=== PATIENT | male | born 1970 | race Caucasian/White ===

== ENCOUNTER 2018-08-23 13:06 | Emergency (ER) | payer SELFPAY ==
--- NOTE | 2018-08-23 13:41 | ER Document Report ---
ED Medical Screen (RME) - General Chief Complaint: Ankle Swelling Stated Complaint: BODYACHE Time Seen by Provider: 08/23/18 13:14 Notes: 48-year-old male to the emergency department chief complaint of lower extremity edema and right-sided chest pain with shortness of breath. Patient states that whenever he does any activity he is extremely winded. He is never had swelling of his legs but noticed his both calves are tender and there is a large amount of swelling with some redness. No history of heart attack, stroke. No history of heart problems or diabetes. No history of blood clots. I have greeted and performed a rapid initial assessment of this patient. A comprehensive ED assessment and evaluation of the patient, analysis of test results and completion of the medical decision making process will be conducted by additional ED providers. TRAVEL OUTSIDE OF THE [place] IN LAST 30 DAYS: No - Related Data Allergies/Adverse Reactions: No Known Allergies Allergy (Verified 08/23/18 13:07) Past Medical History - Social History Chew tobacco use (# tins/day): No Frequency of alcohol use: None Drug Abuse: None Renal/ Medical History: Denies: Hx Peritoneal Dialysis Musculoskeltal Medical History: Reports Hx Arthritis, Reports Hx Musculoskeletal Deformity, Reports Hx Musculoskeletal Trauma Psychiatric Medical History: Reports: Hx Anxiety, Hx Bipolar Disorder, Hx De pression Traumatic Medical History: Reports: Hx Fractures, Hx Spine Fracture Past Surgical History: Reports: Hx Orthopedic Surgery - cyst removal left wrist, Hx Tonsillectomy - Immunizations Hx Diphtheria, Pertussis, Tetanus Vaccination: Yes Review of Systems - Review of Systems Notes: Review of systems positive for the following: Leg pain and calf pain with swelling, right-sided chest pain, shortness of breath, body aches Physical Exam - Vital signs Vitals: Temp Pulse Resp BP Pulse Ox 97.3 F 78 16 145/87 H 98 08/23/18 13:12 08/23/18 13:12 08/23/18 13:12 08/23/18 13:12 08/23/18 13:12 - Respiratory Respiratory status: No respiratory distress Chest status: Nontender Breath sounds: Other - Crackles on the right base Chest palpation: Normal - Cardiovascular Rhythm: Regular Heart sounds: Normal auscultation Murmur: No - Extremities General upper extremity: Normal inspection, Nontender General lower extremity: Tender, Edema, Other - Slight red tinge with 2+ pitting edema bilaterally Course - Vital Signs Vital signs: Temp Pulse Resp BP Pulse Ox 97.3 F 78 16 145/87 H 98 08/23/18 13:12 08/23/18 13:12 08/23/18 13:12 08/23/18 13:12 08/23/18 13:12
--- NOTE | 2018-08-23 14:14 | RADIOLOGY REPORT (SQ) ---
EXAM DESCRIPTION: CHEST 2 VIEWS COMPLETED DATE/TIME: 08/23/2018 2:06 pm REASON FOR STUDY: chest pain COMPARISON: 09/30/2015. EXAM PARAMETERS: NUMBER OF VIEWS: two views TECHNIQUE: Digital Frontal and Lateral radiographic views of the chest acquired. RADIATION DOSE: NA LIMITATIONS: none FINDINGS: LUNGS AND PLEURA: Right pleural effusion/thickening. Mild atelectasis/ scarring in the ri ght lung. Left lung clear. MEDIASTINUM AND HILAR STRUCTURES: Right-sided aortic arch. HEART AND VASCULAR STRUCTURES: Heart normal size. No evidence for failure. BONES: No acute findings. HARDWARE: None in the chest. OTHER: No other significant finding. IMPRESSION: RIGHT PLEURAL EFFUSION VERSUS THICKENING. MILD ATELECTASIS AND SCARRING IN THE RIGHT MEG NG. TECHNICAL DOCUMENTATION: JOB ID: [id number] [employer]- All Rights Reserved Reading location - IP/workstation name: [email or web address]
[2018-08-23 14:20] LABS: ABSOLUTE BASOPHILS # (AUTO) 0.1 10^3/uL (0.0-0.2); ABSOLUTE EOSINOPHILS # (AUTO) 1.1 10^3/uL (0.0-0.6); ABSOLUTE MONOCYTES (AUTO) 0.8 10^3/uL (0.1-1.4); ABSOLUTE NEUT (AUTO) 5.8 10^3/uL (1.7-8.2); BASOPHILS % (AUTO) 1.1 % (0-2); HEMATOCRIT 38.2 % (37.9-51.0); HEMOGLOBIN 12.9 g/dL (13.5-17.0); LYMPHOCYTES % (AUTO) 20.8 % (13-45); MEAN CORPUSCULAR HEMOGLOBIN 28.8 pg (27.0-33.4); MEAN CORPUSCULAR HGB CONC 33.8 g/dL (32.0-36.0); MEAN CORPUSCULAR VOLUME 85 fl (80-97); MONOCYTES % (AUTO) 8.1 % (3-13); PLATELET COUNT 385 10^3/uL (150-450); RED BLOOD COUNT 4.47 10^6/uL (4.35-5.55); RED CELL DISTRIBUTION WIDTH 13.3 % (11.5-14.0); TOTAL CELLS COUNTED % (AUTO) 100 %; WHITE BLOOD COUNT 9.9 10^3/uL (4.0-10.5)
[2018-08-23 14:24] LABS: ALANINE AMINOTRANSFERASE 136 U/L (21-72); ALBUMIN 4.7 g/dL (3.5-5.0); ALKALINE PHOSPHATASE 177 U/L (38-126); ANION GAP 9 (5-19); ASPARTATE AMINO TRANSFERASE 66 U/L (17-59); BILIRUBIN,DIRECT 0.2 mg/dL (0.0-0.4); BILIRUBIN,TOTAL 0.4 mg/dL (0.2-1.3); BLOOD UREA NITROGEN 15 mg/dL (7-20); CALCIUM 9.7 mg/dL (8.4-10.2); CARBON DIOXIDE 30 mmol/L (22-30); CHLORIDE 97 mmol/L (98-107); GLUCOSE 121 mg/dL (75-110); POTASSIUM 4.6 mmol/L (3.6-5.0); SODIUM 136.1 mmol/L (137-145); TOTAL PROTEIN 7.6 g/dL (6.3-8.2)
[2018-08-23 14:37] LABS: NT PRO BNP < 11 pg/mL (5-900); TROPONIN I < 0.012 ng/mL
[2018-08-23 15:12] LABS: PROTHROMBIN TIME 12.6 SEC (11.4-15.4)
--- NOTE | 2018-08-23 16:51 | ER Document Report ---
ED General - General Chief Complaint: Ankle Swelling Stated Complaint: BODYACHE Time Seen by Provider: 08/23/18 13:14 Notes: Patient is a 48-year-old male with no reported past medical history that presents to the emergency department for chief complaint of right pleuritic rib pain, and bilateral lower extremity swelling. Patient reports has been having the symptoms for approximately 3 weeks now, has gotten to the point where his family encouraged him to come to the emergency department. 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 He is got some lightheadedness but no dizziness associated. He states that when he coughs, or takes a deep breath he has pain in his right lower ribs, which is new and seems to be correlating with the leg swelling. He denies prior history of heart disease, lung disease, DVT or PE, denies family history of clots. Denies any recent travel. He also denies any recent fevers, chills, night sweats, nausea, vomiting, abdominal pain, dysuria hematuria or diarrhea. Past Medical History: Denies chronic medical conditions Past Surgical History: Denies surgical history Social History: Admits to smoking cigarettes daily, denies alcohol or illicit drug use. Family History: Reviewed and noncontributory for presenting illness Allergies: Reviewed, see documented allergy list. REVIEW OF SYSTEMS: Other than noted above, the 12 point review of systems was reviewed with the patient and were negative, all pertinent findings are included in the HPI. PHYSICAL EXAMINATION: Vital signs reviewed, nursing noted reviewed. GENERAL: Well-appearing, well-nourished and in no acute distress. HEAD: Atraumatic, normocephalic. EYES: Eyes appear normal, extraocular movements intact, sclera anicteric, conjunctiva are normal. ENT: nares patent, oropharynx clear without exudates. Moist mucous membranes. NECK: Normal range of motion, supple without lymphadenopathy LUNGS: Breath sounds clear to auscultation bilaterally and equal. No wheezes rales or rhonchi. HEART: Regular rate and rhythm without murmurs ABDOMEN: Soft, nontender, normoactive bowel sounds. No rebound, guarding, or rigidity. No masses appreciated. EXTREMITIES: Nontender, good range of motion, no pitting or edema. NEUROLOGICAL: No focal neurological deficits. Moves all extremities spontaneously Motor and sensory grossly intact on exam. PSYCH: Normal mood, normal affect. SKIN: Warm, Dry, normal turgor, no rashes or lesions noted on exposed skin TRAVEL OUTSIDE OF THE [place] IN LAST 30 DAYS: No - Related Data Allergies/Adverse Reactions: No Known Allergies Allergy (Verified 08/23/18 13:07) Past Medical History - Social History Smoking Status: Current Every Day Smoker Chew tobacco use (# tins/day): No Frequency of alcohol use: None Drug Abuse: None Family History: CAD, CVA, Hyperlipidemia, Hypertension Patient has suicidal ideation: No Patient has homicidal ideation: No Renal/ Medical History: Denies: Hx Peritoneal Dialysis Musculoskeletal Medical History: Reports Hx Arthritis, Reports Hx Musculoskeletal Deformity, Reports Hx Musculoskeletal Trauma Psychiatric Medical History: Reports: Hx Anxiety, Hx Bipolar Disorder, Hx Depression Traumatic Medical History: Reports: Hx Fractures, Hx Spine Fracture Past Surgical History: Reports: Hx Orthopedic Surgery - cyst removal left wrist, Hx Tonsillectomy - Immunizations Hx Diphtheria, Pertussis, Tetanus Vaccination: Yes Physical Exam - Vital signs Vitals: Temp Pulse Resp BP Pulse Ox 97.3 F 78 16 145/87 H 98 08/23/18 13:12 08/23/18 13:12 08/23/18 13:12 08/23/18 13:12 08/23/18 13:12 Course - Re-evaluation Re-evalutation: Patient seen and examined vital signs reviewed. Laboratory data and imaging were ordered as appropriate for the patient's presenting symptoms and complaint, with consideration of any critical or life threatening conditions that may be associated with their obtained history and exam as noted above. Patient was treated with IV Toradol for pain Results were reviewed when available and demonstrated elevated d-dimer, therefore CT angiogram of the chest was ordered, and this was negative for pulmonary embolism, was suboptimal bolusing, the patient was not tachycardic, and had normal pulse ox, he was noted on his chest x-ray to have a small right- sided pleural effusion which may be causing the patient's pleuritic pain, I discussed these findings with the patient, and discussed with him treatment of his peripheral edema conservatively initially with compression stockings, and following up with the primary care physician, he is given referral to several to schedule an appointment. His BNP was not elevated, did not have significant cardiomegaly on chest x-ray. The patient was re-evaluated and was stable, and felt improved Evaluation was most consistent with pleuritic pain, peripheral edema Results were discussed with the patient at this point, after careful consideration I feel that that patient can be discharged from the emergency department, the patient was educated treatments and reasons to return to the emergency department based on their presumed diagnosis as noted above, they were advised to followup with a primary care physician in 2-3 days. Patient was agreeable to plan of care. *Note is created using voice recognition software and may contain spelling, syntax or grammatical errors. Laboratory 08/23/18 08/23/18 08/23/18 13:48 13:48 13:48 WBC 9.9 RBC 4.47 Hgb 12.9 L Hct 38.2 MCV 85 MCH 28.8 MCHC 33.8 RDW 13.3 Plt Count 385 Seg Neutrophils % 59.0 Lymphocytes % 20.8 Monocytes % 8.1 Eosinophils % 11.0 H Basophils % 1.1 Absolute Neutrophils 5.8 Absolute Lymphocytes 2.0 Absolute Monocytes 0.8 Absolute Eosinophils 1.1 H Absolute Basophils 0.1 PT INR D-Dimer Sodium 136.1 L Potassium 4.6 Chloride 97 L Carbon Dioxide 30 Anion Gap 9 BUN 15 Creatinine 0.97 Est GFR ( Amer) > 60 Est GFR (Non-Af Amer) > 60 Glucose 121 H Calcium 9.7 Total Bilirubin 0.4 Direct Bilirubin 0.2 Neonat Total Bilirubin Not Reportable Neonat Direct Bilirubin Not Reportable Neonat Indirect Bili Not Reportable AST 66 H ALT 136 H Alkaline Phosphatase 177 H Troponin I < 0.012 NT-Pro-B Natriuret Pep < 11 Total Protein 7.6 Albumin 4.7 08/23/18 08/23/18 13:48 13:48 WBC RBC Hgb Hct MCV MCH MCHC RDW Plt Count Seg Neutrophils % Lymphocytes % Monocytes % Eosinophils % Basophils % Absolute Neutrophils Absolute Lymphocytes Absolute Monocytes Absolute Eosinophils Absolute Basophils PT 12.6 INR 0.90 D-Dimer 1.69 H Sodium Potassium Chloride Carbon Dioxide Anion Gap BUN Creatinine Est GFR ( Amer) Est GFR (Non-Af Amer) Glucose Calcium Total Bilirubin Direct Bilirubin Neonat Total Bilirubin Neonat Direct Bilirubin Neonat Indirect Bili AST ALT Alkaline Phosphatase Troponin I NT-Pro-B Natriuret Pep Total Protein Albumin Chest X-Ray 08/23/18 13:39 IMPRESSION: RIGHT PLEURAL EFFUSION VERSUS THICKENING. MILD ATELECTASIS AND SCARRING IN THE RIGHT LUNG. Chest/Abdomen CTA 08/23/18 14:44 IMPRESSION: 1. Limited study. There is no significant evidence of pulmonary emboli. 2. 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 - Vital Signs Vital signs: Temp Pulse Resp BP Pulse Ox 98.2 F 76 16 123/85 100 08/23/18 17:56 08/23/18 17:56 08/23/18 17:56 08/23/18 17:56 08/23/18 17:56 - Laboratory Result Diagrams: 08/23/18 13:48 08/23/18 13:48 Laboratory results interpreted by me: 08/23/18 08/23/18 08/23/18 13:48 13:48 13:48 Hgb 12.9 L Eosinophils % 11.0 H Absolute Eosinophils 1.1 H D-Dimer 1.69 H Sodium 136.1 L Chloride 97 L Glucose 121 H AST 66 H ALT 136 H Alkaline Phosphatase 177 H - EKG Interpretation by Me Additional EKG results interpreted by me: EKG demonstrates sinus rhythm with a ventricular rate of 74 bpm, left axis deviation, normal intervals, no evidence of acute ischemia on this EKG, this is compared with the prior EKG from 09/30/2015 without significant change. Discharge - Discharge Clinical Impression: Pleurisy, Pleural effusion, Peripheral edema Condition: Stable Disposition: HOME, SELF-CARE Instructions: Edema, Peripheral ([facility]) Additional Instructions: Please follow-up with the primary care physician, call for an appointment as soon as possible, see can be established for care, I think you need further workup including an ultrasound of your heart, we call this an echocardiogram. You should use compression stockings, this can be purchased at any pharmacy, or medical supply store, to help with the leg swelling, keep your legs elevated as much as possible. And for the pain on your ribs, take the prescribed medication, once daily to see if it will help with your symptoms. Prescriptions: Meloxicam [Mobic] 15 mg PO DAILY #15 tablet Referrals: MICHELLE MARTINEZ MD [ACTIVE STAFF] - Follow up in 3-5 days [facility] [Provider Group] - Follow up in 3-5 days [facility] [Provider Group] - Follow up in 3-5 days
--- NOTE | 2018-08-23 17:06 | RADIOLOGY REPORT (SQ) ---
EXAM DESCRIPTION: CTA CHEST COMPLETED DATE/TIME: 08/23/2018 4:29 pm REASON FOR STUDY: right pleuritic pain, elevated dimer COMPARISON: None. TECHNIQUE: CT scan of the chest performed using helical scanning technique with dynamic intravenous contrast injection. Images reviewed with lung, soft tissue and bone windows. Reconstructed coronal and sagittal MPR images reviewed. Additional 3 dimensional post-processing performed to develop Maximal Intensity Projection images (PA P). All images stored on PACS. All CT scanners at this facility use dose modulation, iterative reconstruction, and/or weight based d osing when appropriate to reduce radiation dose to as low as reasonably achievable (ALARA). [facility]: Dose Right [facility]: CareDose [facility]: Dose Right [facility]: Teradose 4D [facility]: [employer] CONTRAST TYPE AND DOSE: contrast/concentration: Isovue 350.00 mg/ml; Total Contrast Delivered: 155.0 ml; Total Saline Delivered: 176.5 ml Contrast bolus optimized for the pulmonary arteries. Not diagnostic for the aorta. RENAL FUNCTION: BUN 15 creatinine 0.97 RADIATION DOSE: CT Rad equipment meets quality standard of care and radiation dose reduction techniq ues were employed. CTDIvol: 3.3 - 21.6 mGy. DLP: 1827 mGy-cm. . LIMITATIONS: Suboptimal bolus timing. FINDINGS: LUNGS AND PLEURA: No masses, infiltrates, or pneumothorax. No pleural effusions or pleura l calcifications. AORTA AND GREAT VESSELS: No aneurysm. 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 The descen ding aorta is in the right side of the thorax. HEART: No pericardial effusion. No significant coronary artery calcifications. PULMONARY ARTERIES: No emboli visualized in the main pulmonary arteries or the segmental branches. HILAR AND MEDIASTINAL STRUCTURES: No identified masses or abnormal nodes. HARDWARE: None in the chest. UPPER ABDOMEN: No significant findings. Limited exam. THYROID AND OTHER SOFT TISSUES: No masses. No adenopathy. BONES: No acute or significant finding. 3D MIPS: Confirm above findings. OTHER: No other significant finding. IMPRESSION: 1. Limited study. There is no significant evidence of pulmonary emboli. 2. 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 COMMENT: Quality ID # [id number]: Final reports with documentation of one or more dose reduction techniques (e.g., Automated exposure control, adjustment of the mA and/or kV according to patient size, use of iterative reconstruction technique) TECHNICAL DOCUMENTATION: JOB ID: [id number] [employer]- All Rights Reserved Reading location - IP/workstation name: [email or web address]
[2018-08-23 17:58] VITALS: BP 123/85
--- NOTE | 2018-08-23 19:33 | EKG REPORT ---
SEVERITY:- ABNORMAL ECG - SINUS RHYTHM PROBABLE LEFT ATRIAL ABNORMALITY NONSPECIFIC INTRAVENTRICULAR CONDUCTION DELAY : Confirmed by: Cash Paez 23-Aug-2018 19:32:29
--- NOTE | 2018-08-24 08:03 | XCELERA REPORT ---
[address] [facility] [address] Lower Extremity Venous Evaluation Procedure: Color flow and duplex imaging bilaterally of the veins of the lower extremities as well as the Common Femoral veins. Right Sided Venous Evaluation Normal vessel filling wall to wall, compression and augmentation as well as Colour flow down to the infrageniculate veins. Left Sided Venous Evaluation Normal vessel filling wall to wall, compression and augmentation as well as Colour flow down to the infrageniculate veins. Interpretation Summary No duplex evidence of DVT or obstruction in the bilateral lower extremities. Name: JUSTICE MAYER Age: 48 yrs Gender: Male : 1970 Patient Status: Emergency Patient Location: ER Study Date: 08/23/2018 03:48 PM Reason For Study: elevated dimer, bilateral le edema Ordering Physician: SHERIF DAVALOS Performed By: Jamal Blanco : SHERIF DAVALOS > Gorge Scanlon
== END 2018-08-23 17:56 | disposition home or self-care (01) ==
LOC: ER 13:06
DX: J90 Pleural effusion, not elsewhere classified (principal); R60.9 Edema, unspecified; M79.10 Myalgia, unspecified site; R07.81 Pleurodynia; R06.02 Shortness of breath; F17.210 Nicotine dependence, cigarettes, uncomplicated
CPT/HCPCS: 36415; 71046; 71275; 80053; 83880; 84484; 85025; 85379; 85610; 93005; 93010; 93970; 99284